=== PATIENT | male | born 1990 | race Caucasian/White ===

== ENCOUNTER 2018-04-22 19:26 | Emergency (ER) | payer OTHER, BC ==
[2018-04-22 19:30] VITALS: BP 156/91
--- NOTE | 2018-04-22 19:34 | ER Report ---
History and Physical Time Seen By MD: 19:34 Hx. of Stated Complaint: began not feeling well on , had a fever of 99.0. red rash on arms, hands, rt flank, face. meeta itches HPI/ROS CHIEF COMPLAINT: Possible chickenpox HISTORY OF PRESENT ILLNESS: 27-year-old male patient presents to emergency room with complaint of possible chickenpox. Patient states that he had an illness on . He states that he had fevers, sore throat and body aches. States his temperature got up to 99. He states that he felt crummy for couple of days and then started to feel better. States that he has no body aches or fevers currently, however he has noted that he has a rash that started on his arms, hands, face, feet. Patient states that he does really have any itching, however he does have some worsening pain when he tries to close his hand. He denies having any nausea, vomiting or diarrhea. REVIEW OF SYSTEMS: Respiratory: No cough, no dyspnea. Cardiovascular: No chest pain, no palpitations. Gastrointestinal: No vomiting, no abdominal pain. Musculoskeletal: No back pain. Allergies: Coded Allergies: No Known Drug Allergies (Unverified , 04/22/18) Home Meds Active Scripts Cephalexin 500 Mg Tab (KEFLEX 500 MG TAB) 500 Mg Tablet, 500 MG PO Q6H, #28 TAB Prov:APOLINAR LOPEZ TAO 04/22/18 Past Medical/Surgical History Patient has a past medical history of social alcohol use. Patient denies any pertinent surgical history. Reviewed Nurses Notes: Yes Constitutional Vital Sign - Last 24 Hours 04/22/18 19:30 Temp 98.9 Pulse 94 Resp 14 B/P (MAP) 156/91 Pulse Ox 91 O2 Delivery Room Air Physical Exam General Appearance: The patient is alert, has no immediate need for airway protection and no current signs of toxicity. Respiratory: Chest is non tender, lungs are clear to auscultation. Cardiac: regular rate and rhythm Gastrointestinal: Abdomen is soft and non tender, no masses, bowel sounds normal. Musculoskeletal: Neck: Neck is supple and non tender. Extremities have full range of motion and are non tender. Skin: No rashes or lesions. Patient does have lesions on the palm of his hands, dorsal aspect of his hands and up into the wrist. They are erythematous, nontender. On his face he does have some areas of honeycombing crusting. When looking into his mouth he does have white lesions on his tongue. DIFFERENTIAL DIAGNOSIS: After history and physical exam differential diagnosis was considered for viral exanthem, impetigo, [id number]-[id number]-mouth. Medical Decision Making ED Course/Re-evaluation ED Course Patient was admitted to an exam room, history and physical were obtained. Differential diagnoses were considered. On examination lungs are clear, heart is regular, abdomen is soft and nontender. Patient does have white lesions on his toes as well as rash on his hands, does have erythematous bases. Also had some high crusting on his face, most notably under his nose. I believe that with constellation of symptoms the patient likely has uoel-[id number]-twm-mouth disease. I believe that he also has impetigo which is likely secondary from discharge from his nose. We will go ahead and treat the impetigo with Keflex. I'll have him follow-up with his primary care provider. I believe the time will just resolve the [id number]-[id number]-vqp-mouth. He is return to emergency room if condition worsens. Patient verbalized understanding and agreement with plan. Decision to Disposition Date: Apr 22, 2018 Decision to Disposition Time: 19:53 Depart Departure Latest Vital Signs Vital Signs Date Time Temp Pulse Resp B/P (MAP) Pulse Ox O2 Delivery O2 Flow Rate FiO2 04/22/18 19:30 98.9 94 14 156/91 91 Room Air Impression: Primary Impression: Hand, foot and mouth disease Additional Impression: Impetigo Condition: Improved Disposition: HOME OR SELF-CARE New Scripts Cephalexin 500 Mg Tab (KEFLEX 500 MG TAB) 500 Mg Tablet 500 MG PO Q6H, #28 TAB Prov: APOLINAR LOPEZ 04/22/18 Patient Instructions: Hand, Foot, and Mouth Disease (ED) Additional Instructions: Increase fluid intake. Get plenty of rest. Follow up with your primary care provider in the next week. Return to the ER if condition worsens. Take medication as prescribed. Make sure to wash your hands any time that you touch your face. Problem Qualifiers APOLINAR LOPZE Apr 22, 2018 19:34
[2018-04-22] MEDS ORDERED: CEPH500T7 PO (19:52)
[2018-04-22] MEDS ORDERED: CEPHALEXIN 500 MG CAP TH 2 CAP/BOTTLE PO ONE (19:55)
== END 2018-04-22 20:00 | disposition home or self-care (01) ==
LOC: ER 19:30
DX: B08.4 Enteroviral vesicular stomatitis with exanthem (principal); L01.00 Impetigo, unspecified
CPT/HCPCS: 99283